=== PATIENT | female | born 1935 ===

== ENCOUNTER 2017-05-12 22:29 | Emergency (ER) | payer SELFPAY ==
[2017-05-12] MEDS ORDERED: Sodium Chloride 0.9% 1,000 ML IV STA (22:51)
--- NOTE | 2017-05-12 23:09 | ED PDOC ---
HPI: Abdomen Time Seen by Provider: 05/12/17 22:42 Chief Complaint (Nursing): Back Pain Chief Complaint (Provider): Abdominal pain, back pain History Per: Patient History/Exam Limitations: no limitations Onset/Duration Of Symptoms: Days (1) Outside of [place] travel?: No Current Symptoms Are (Timing): Still Present Severity: Moderate Location Of Pain/Discomfort: RLQ Quality Of Discomfort: "Pain" Associated Symptoms: Back Pain. denies: Fever, Chills, Nausea, Vomiting, Diarrhea, Constipation, Urinary Symptoms Additional History Per: Patient Additional Complaint(s): The patient is a 82yo female, pmhx of renal stone removals, presents to the ED for evaluation of right flank pain, described as a pinching sensation, present for the past day. Pt reports she has been taking Advil for her symptoms with no relief. She denies any dysuria, hematuria, fever, chills, nausea, vomiting, diarrhea, constipation. She offers no additional medical complaints. Past Medical History Reviewed: Historical Data, Nursing Documentation, Vital Signs Vital Signs: Last Vital Signs Temp 98.7 F 05/13/17 03:46 Pulse 76 05/13/17 03:46 Resp 16 05/13/17 03:46 BP 138/75 05/13/17 03:46 Pulse Ox 97 05/13/17 03:46 - Medical History PMH: Kidney Stones - Surgical History Other surgeries: kidney stone removal - Family History Family History: States: Unknown Family Hx - Social History Current smoker - smoking cessation education provided: No Alcohol: None Drugs: Denies - Home Medications Home Medications: Ambulatory Orders Medication Instructions Recorded Levofloxacin [Levaquin] 750 mg PO DAILY #5 tablet 05/13/17 - Allergies Allergies/Adverse Reactions: Allergies Allergy/AdvReac Type Severity Reaction Status Date / Time No Known Allergies Allergy Verified 05/12/17 22:36 Review of Systems ROS Statement: Except As Marked, All Systems Reviewed And Found Negative Constitutional: Negative for: Fever, Chills Gastrointestinal: Positive for: Abdominal Pain. Negative for: Nausea, Vomiting , Diarrhea, Constipation Genitourinary Female: Negative for: Dysuria, Frequency Musculoskeletal: Positive for: Back Pain Physical Exam - Reviewed Nursing Documentation Reviewed: Yes Vital Signs Reviewed: Yes - Physical Exam Appears: Positive for: Non-toxic, No Acute Distress Head Exam: Positive for: ATRAUMATIC, NORMAL INSPECTION, NORMOCEPHALIC Skin: Positive for: Normal Color, Warm, Dry. Negative for: Rash Eye Exam: Positive for: Normal appearance, EOMI, PERRL Neck: Positive for: Normal, Supple Cardiovascular/Chest: Positive for: Regular Rate, Rhythm Respiratory: Positive for: Normal Breath Sounds. Negative for: Respiratory Distress Gastrointestinal/Abdominal: Positive for: Soft, Tenderness (right lateral abdomen tenderness) Back: Positive for: Other (right lower backfiller to palpation) Neurologic/Psych: Positive for: Alert, Oriented. Negative for: Motor/Sensory Deficits - Laboratory Results Result Diagrams: 05/12/17 23:20 05/12/17 23:20 - ECG O2 Sat by Pulse Oximetry: 100 (RA) Pulse Ox Interpretation: Normal Medical Decision Making Medical Decision Making: Impression: Lower back and abdominal pain Plan: * CT AP w/o contrast * EKG * PTT * PT * CMP * Lipase * CBC * Troponin * IV NS 1L 100ml/hr * Morphine 2mg IV * Urine culture * Urinalysis * Reassess Scribe Attestation: Documented by Radha Head, acting as a scribe for Tamiko Morataya MD. Provider Scribe Attestation: All medical record entries made by the Scribe were at my direction and personally dictated by me. I have reviewed the chart and agree that the record accurately reflects my personal performance of the history, physical exam, medical decision making, and the department course for this patient. I have also personally directed, reviewed, and agree with the discharge instructions and disposition. Disposition - Clinical Impression Clinical Impression: Pneumonia, Right lower lobe pneumonia, Flank pain, Hematuria - Disposition Referrals: Darian Webster MD [Medical Doctor] - Disposition Time: 00:00 Condition: STABLE Additional Instructions: Take your medications as instructed. Follow up with your PCP in 2-3 days. Prescriptions: Levofloxacin [Levaquin] 750 mg PO DAILY #5 tablet Instructions: Flank Pain (ED), Pneumonia (ED) Print Language: NAMIBIAN Patient Signed Over To: Asher Burciaga Handoff Comments: Pending UA and CT.
[2017-05-12 23:24] LABS: BASO % 0.3 % (0.0-2.0); EOS # 0.2 K/uL (0.0-0.7); EOS % 2.1 % (0.0-4.0); HEMATOCRIT 37.8 % (34.0-47.0); LYMPH # 1.3 K/uL (1.0-4.3); LYMPH % 16.2 % (20.0-40.0); MEAN CELL VOLUME 94.3 fl (81.0-99.0); MEAN CORPUSCULAR HGB CONC 32.8 g/dL (33.0-37.0); MEAN PLATELET VOLUME 8.1 fl (7.2-11.7); MONO # 0.6 K/uL (0.0-0.8); MONO % 7.3 % (0.0-10.0); NEUT # 5.8 K/uL (1.8-7.0); NEUT % 74.1 % (50.0-75.0); RED CELL DISTRIBUTION WIDTH 14.7 % (11.5-14.5); WHITE BLOOD COUNT 7.9 K/uL (4.8-10.8)
[2017-05-12 23:35] LABS: ALB/GLOB RATIO 1.3 (1.0-2.1); ALKALINE PHOSPHATASE 92 U/L (38-126); ALT/SGPT 54 U/L (9-52); AST/SGOT 40 U/L (14-36); BILIRUBIN,TOTAL 0.5 mg/dl (0.2-1.3); BLOOD UREA NITROGEN 20 mg/dl (7-17); CALCIUM 9.2 mg/dL (8.4-10.2); CARBON DIOXIDE 26 mmol/L (22-30); CHLORIDE 101 mmol/L (98-107); GFR AFRICAN-AMERICAN > 60; GLUCOSE,RANDOM 141 mg/dL (65-105); LIPASE 78 U/L (23-300); POTASSIUM 4.1 MMOL/L (3.6-5.0); SODIUM 137 mmol/l (132-148); TOTAL PROTEIN 7.2 G/DL (6.3-8.2)
--- NOTE | 2017-05-13 00:12 | ED PDOC ---
- Laboratory Results Result Diagrams: 05/12/17 23:20 05/12/17 23:20 - ECG O2 Sat by Pulse Oximetry: 100 (RA) Pulse Ox Interpretation: Normal Medical Decision Making Medical Decision Making: Receiving Sign Out: Patient signed out to me by Dr. Morataya pending CT and urine results. Scribe Attestation: Documented by Radha Head, acting as a scribe for Asher Burciaga MD. Provider Scribe Attestation: All medical record entries made by the Scribe were at my direction and personally dictated by me. I have reviewed the chart and agree that the record accurately reflects my personal performance of the history, physical exam, medical decision making, and the department course for this patient. I have also personally directed, reviewed, and agree with the discharge instructions and disposition. Disposition Doctor Will See Patient In The: Office Counseled Patient/Family Regarding: Studies Performed, Diagnosis, Need For Followup - Clinical Impression Clinical Impression: Pneumonia, Right lower lobe pneumonia, Flank pain, Hematuria - POA Present On Arrival: None - Disposition Referrals: Darian Webster MD [Medical Doctor] - Disposition: Routine/Home Disposition Time: : Condition: GOOD Additional Instructions: Take your medications as instructed. Follow up with your PCP in 2-3 days. Prescriptions: Levofloxacin [Levaquin] 750 mg PO DAILY #5 tablet Instructions: Pneumonia (ED), Flank Pain (ED) Print Language: MALTESE Progress Note - Review of Symptoms Events since last encounter: Time: 17 CT AP IMPRESSION: Right lower lung infiltrate and consolidation/atelectasis - the posterior- inferior location could be producing the patient's reported right flank pain. Hiatal hernia. Moderate amount of stool within the cecum. Urine results reviewed and are normal. Time: 200 CT Chest ordered Time: 299 CT Chest IMPRESSION: Right lower lung infiltrate and consolidation likely of infectious/atelectatic etiology although followup is recommended to ensure resolution. Moderate hiatal hernia.
--- NOTE | 2017-05-13 00:18 | CT ---
EXAM: CT Abdomen and Pelvis Without Intravenous Contrast EXAM DATE/TIME: 05/12/2017 10:51 PM CLINICAL HISTORY: 82 years old, female; Pain; Abdominal pain; Flank; Right; Additional info: R sided abd pain TECHNIQUE: Axial computed tomography images of the abdomen and pelvis without intravenous contrast. All CT scans at this facility use one or more dose reduction techniques, viz.: automated exposure control; ma/kV adjustment per patient size (including targeted exams where dose is matched to indication; i.e. head); or iterative reconstruction technique. Coronal and sagittal reformatted images were created and reviewed. COMPARISON: No relevant prior studies available. FINDINGS: Small area consolidation in the lingula. Hazy opacity with small amount of consolidation in the right lateral and. The liver, spleen, and pancreas appear grossly normal on this non-contrast study. No perinephric stranding. No hydronephrosis. No obstructing calculi. There is a large hiatal hernia. Moderate amount of stool in the cecum. A normal appendix is identified axial images 106 - 120, coronal images 59 through 64. Intraluminal calcification is noted however the appendix is of normal caliber and there is no periappendiceal stranding. IMPRESSION: Right lower lung infiltrate and consolidation/atelectasis - the posterior-inferior location could be producing the patient's reported right flank pain. Hiatal hernia. Moderate amount of stool within the cecum.
[2017-05-13 00:54] LABS: RBC URINE 32 /hpf (0-3); URINE BILIRUBIN NEGATIVE (NEGATIVE); URINE BLOOD MODERATE (NEGATIVE); URINE COLOR YELLOW (YELLOW); URINE GLUCOSE (UA) NEG (Normal); URINE KETONE NEGATIVE (NEGATIVE); URINE LEUKOCYTE ESTERASE NEG Leu/uL (Negative); URINE PROTEIN NEGATIVE (NEGATIVE); URINE UROBILINOGEN 0.2-1.0 mg/dL (0.2-1.0); WBC URINE 1 /hpf (0-5)
--- NOTE | 2017-05-13 03:00 | CT ---
EXAM: CT Chest Without Intravenous Contrast EXAM DATE/TIME: 05/13/2017 2:01 AM CLINICAL HISTORY: 82 years old, female; Abnormal findings; Abnormal radiologic exam of lung or chest; Additional info: Rll infiltrate TECHNIQUE: Axial computed tomography images of the chest without intravenous contrast. All CT scans at this facility use one or more dose reduction techniques, viz.: automated exposure control; ma/kV adjustment per patient size (including targeted exams where dose is matched to indication; i.e. head); or iterative reconstruction technique. Coronal and sagittal reformatted images were created and reviewed. COMPARISON: CR - CHEST PORTABLE 05/13/2017 1:20:22 AM FINDINGS: The ascending aorta measures 3.7 cm in diameter. The aortic arch measures 3.2 cm in diameter. The descending aorta measures 3 cm in diameter. No periaortic fluid. Moderate hiatal hernia. Infiltrate and consolidation in the right lower lung. Consolidation/atelectasis in the lingula. Platelike atelectasis in the right lung apex. Punctate 3 mm calcified nodule right midlung image 233. No pleural or pericardial effussions. IMPRESSION: Right lower lung infiltrate and consolidation likely of infectious/atelectatic etiology although followup is recommended to ensure resolution. Moderate hiatal hernia.
[2017-05-13 03:47] VITALS: BP 138/75; PULSE 76; RESP 16; TEMP 98.7
--- NOTE | 2017-05-13 10:01 | RAD ---
HISTORY: right chest pain COMPARISON: Chest CT without contrast 05/13/2017 subsequent to the current radiograph. FINDINGS: LUNGS: An infiltrate is not appreciated the current exam however is been shown at the right lower lobe in the posterior costophrenic sulcus in chest CT 05/13/2017 after this exam was performed. Clinically correlate further. No left-sided infiltrate in the same CT. PLEURA: No significant pleural effusion identified, no pneumothorax apparent. CARDIOVASCULAR: Cardiomegaly. No pulmonary vascular derangement appreciated. OSSEOUS STRUCTURES: No significant abnormalities. VISUALIZED UPPER ABDOMEN: Hiatal hernia identified. OTHER FINDINGS: None. IMPRESSION: No infiltrate is appreciable. Infiltration identified in the right base in subsequent CT of the chest is currently obscured by the diaphragm on the current study. Cardiomegaly. Hiatal hernia identified.
[2017-05-14 11:12] VITALS: O2SAT 100
--- NOTE | 2017-05-14 11:33 | CARD ---
APPROVED REPORT EKG Measurement Heart [id number] <Conclusion> Normal sinus rhythm Normal ECG
== END 2017-05-13 03:44 | disposition home or self-care (01) ==
LOC: H.ER 22:29
DX: K44.9 Diaphragmatic hernia without obstruction or gangrene (principal); J18.1 Lobar pneumonia, unspecified organism; N39.0 Urinary tract infection, site not specified
CPT/HCPCS: 71010; 71250; 74176; 80053; 81003; 83690; 85025; 85610; 85730; 87086; 93005; 96360; 96361; 99284; J2270; J7040